=== PATIENT | male | born 1990 | race Caucasian/White ===

== ENCOUNTER 2022-02-04 14:41 | Emergency (ER) | payer OTHER, SELFPAY ==
[2022-02-04 14:56] VITALS: BP 134/74; PULSE 81; RESP 16; TEMP 36.9; O2SAT 97; BMI 21.9
--- NOTE | 2022-02-04 16:03 | ED.GENADULT ---
HPI - General Adult General Time Seen by Provider: 16:03 Date Seen: 02/04/22 Chief complaint: Extremity Pain/Injury, Upper Stated complaint: Elbow Lump Time Seen by Provider: 02/04/22 15:55 Source: patient and RN notes reviewed Mode of arrival: ambulatory Limitations: no limitations History of Present Illness HPI narrative: Patient is a 31-year-old male coming in with increasing left elbow pain. It has been bothering him for few days but last night started getting more painful that he could not sleep. He does not know of any injury, no trauma. He has not had any fevers or chills but notes increasing swelling and redness. It is hurting to mobilize his elbow. Tetanus is up-to-date per patient. No numbness or tingling in this extremity. It hurts on the posterior aspect of the elbow is getting more swollen. Related Data Home Medications Medication Instructions Recorded Confirmed No Known Home Medications 02/04/22 02/04/22 Allergies Allergy/AdvReac Type Severity Reaction Status Date / Time No Known Drug Allergies Allergy Verified 02/04/22 14:58 Review of Systems Status of ROS: Reports: 6 or more systems reviewed and unremarkable except as noted in History and below Exam Const: Vital Signs, click to edit/add: Vital Signs - 24 hr 02/04/22 14:56 Temperature 98.5 F Pulse Rate [Pulse Oximeter] 81 Respiratory Rate 16 Blood Pressure [Ri ght Upper Arm] 134/74 Pulse Oximetry 97 Oxygen Delivery Me thod Room Air Documenting provider has reviewed patient's vital signs: yes Common normals: no apparent distress, oriented x3, no limitations, healthy appearing and alert General appearance: cooperative, comfortable, well kempt and well developed HENMT: Common normals: normocephalic, head/scalp atraumatic and hearing grossly normal bilaterally Head and scalp: normocephalic and atraumatic Eye: Common normals: PERRL, EOMs intact bilaterally, conjunctivae normal and no scleral icterus Conjunctiva: conjunctiva(e) normal Pupil: PERRL Neck & C-Spine: Common normals: full ROM, no lymphadenopathy and supple Lymph: Other: I do not feel any left axillary lymphadenopathy Resp: Common normals: normal respiratory effort, no retractions, no use of accessory muscles and clear to auscultation bilaterally Auscultation: clear to auscultation bilaterally Cardio: Common normals: regular rate, regular rhythm, S1 normal heart sound, S2 normal heart sound, no gallops, no clicks and no murmurs Rate: regular rate Rhythm: regular rhythm Heart sounds: S1 normal and S2 normal Extremity: Other: On the posterior aspect of his left elbow there is erythema and swelling. It goes above the olecranon process and down onto the forearm. I do feel some fluid in the area of the bursa. He can fully flex and extend but states it is painful. This most definitely seems to be a cellulitis. Neuro: Common normals: oriented x3 Sensorium/orientation: alert Psych: Appearance: well kempt Course Course Hospital Course: Will obtain blood culture, baseline labs. We will start with plain imaging of the elbow. Reevaluation(s) Reevaluation #1: Reviewed with patient that his x-ray is looking reasonable. We did review that MRI would be the modality of choice. He states overall he feels fine is just there is pain in the elbow but still can fully flex and extend. Re-evaluation of his elbow reassures me that my clinical suspicion of cellulitis without septic bursitis is correct. His white count is mildly elevated. He has no history of MRSA. We are going to initiate IV Ancef while I wait for the rest of his labs to come back. He does not have a primary care provider, states he would probably just plan on following up here in our clinic. Time: 17:37 Reevaluation #2: Patient tolerated his IV Ancef. Did hanna the perimeter of his elbow. He still can fully flex and extend. Really do not have this sense that this is a septic bursitis. It is more of a global cellulitis over the elbow. He is afebrile, will treat outpatient at this point. Ultimately would recommend clinic follow-up tomorrow but realistically he and I have reviewed that I doubt that there is any chance that this will happen. They are just no office visit, no availability in clinics, hospitals, the medical situation is very difficult at this time. I did review with the patient that I am certainly back in the ER on Tuesday. He knows in the meantime though if this is progressing or worsening, increasing pain, does need to be re-evaluated. I do not think he needs increased imaging, hospitalization for IV antibiotics at this time. I do feel he is clinically appropriate for outpatient management. Note there still is a pending C-reactive protein as there was something amiss with the chemistry analyzer, still awaiting that but I doubt that will change my position or stance on outpatient management. We have discussed dispensing medicines from [facility], patient had significant difficulty sleeping last night due to pain. Will give a prescription for tramadol. Will give the smallest dose possible from [facility]. Time: 19:08 Vital Signs Vital signs: Initial Vital Signs Temperature 98.5 F 02/04/22 14:56 Temperature Source Temporal Artery Scan 02/04/22 14:56 Pulse Rate 81 02/04/22 14:56 Respiratory Rate 16 02/04/22 14:56 Blood Pressure 134/74 02/04/22 14:56 Blood Pressure Mean 94 02/04/22 14:56 Blood Pressure Position Sitting 02/04/22 14:56 Pulse Oximetry 97 02/04/22 14:56 Oxygen Delivery Method 02/04/22 14:56 Vital Signs Temperature 98.5 F 02/04/22 14:56 Pulse Rate 81 02/04/22 14:56 Respiratory Rate 16 02/04/22 14:56 Blood Pressure 134/74 02/04/22 14:56 Pulse Oximetry 97 02/04/22 14:56 Oxygen Delivery Method 02/04/22 14:56 Temperature 98.5 F 02/04/22 14:56 Pulse Rate 81 02/04/22 14:56 Respiratory Rate 16 02/04/22 14:56 Blood Pressure 134/74 02/04/22 14:56 Pulse Oximetry 97 02/04/22 14:56 Oxygen Delivery Method 02/04/22 14:56 Medical Decision Making Lab Data Lab results reviewed: Yes I reviewed the patient's lab results Labs: Lab Results 02/04/22 02/04/22 02/04/22 Range/Units 16:30 16:30 16:30 WBC 12.35 H (4.50-11.00) K/uL RBC 5.06 (4.30-5.90) m/uL Hgb 15.3 (13.5-17.5) gm/dL Hct 44.7 (37.0-53.0) % MCV 88 (80-100) fL MCH 30 (26-34) pg MCHC 34 (32-36) gm/dL RDW Coeff of Stepan 12.7 (11.5-15.5) % Plt Count 247 (140-440) K/uL Neut % (Auto) 81.5 H (42.0-72.0) % Lymph % (Auto) 9.1 L (20-44) % [place] % (Auto) 7.9 (0.0-11.0) % Eos % (Auto) 1.1 (0.0-7.0) % Baso % (Auto) 0.2 (0.0-3.0) % Neut # (Auto) 10.10 H (1.7-7.0) K/uL Lymph # (Auto) 1.10 (0.90-2.90) K/uL [place] # (Auto) 1.00 H (0.00-0.90) K/UL Eos # (Auto) 0.10 (0.00-0.50) K/uL Baso # (Auto) 0.00 (0.00-0.30) K/uL Abs Immat Gran (auto) 0.00 (0.00-0.30) K/uL Imm/Tot Granulo (auto) 0.2 % ESR 6 (2-15) mm/hr Sodium (135-149) mmol/L Potassium (3.6-5.1) mmol/L Chloride (96-114) mmol/L Carbon Dioxide (20-32) mmol/L BUN (5-24) mg/dL Creatinine (0.5-1.5) mg/dL Estimated Creat Clear Estimated GFR ml/min Glucose (60-115) mg/dL Calcium (8.4-10.6) mg/dL C-Reactive Protein 5.8 H (0.5-1.0) mg/dL 02/04/22 Range/Units 16:30 WBC (4.50-11.00) K/uL RBC (4.30-5.90) m/uL Hgb (13.5-17.5) gm/dL Hct (37.0-53.0) % MCV (80-100) fL MCH (26-34) pg MCHC (32-36) gm/dL RDW Coeff of Stepan (11.5-15.5) % Plt Count (140-440) K/uL Neut % (Auto) (42.0-72.0) % Lymph % (Auto) (20-44) % [place] % (Auto) (0.0-11.0) % Eos % (Auto) (0.0-7.0) % Baso % (Auto) (0.0-3.0) % Neut # (Auto) (1.7-7.0) K/uL Lymph # (Auto) (0.90-2.90) K/uL [place] # (Auto) (0.00-0.90) K/UL Eos # (Auto) (0.00-0.50) K/uL Baso # (Auto) (0.00-0.30) K/uL Abs Immat Gran (auto) (0.00-0.30) K/uL Imm/Tot Granulo (auto) % ESR (2-15) mm/hr Sodium 139 (135-149) mmol/L Potassium 3.9 (3.6-5.1) mmol/L Chloride 102 (96-114) mmol/L Carbon Dioxide 30 (20-32) mmol/L BUN 13 (5-24) mg/dL Creatinine 0.7 (0.5-1.5) mg/dL Estimated Creat Clear 179.82 Estimated GFR 128 ml/min Glucose 81 (60-115) mg/dL Calcium 9.4 (8.4-10.6) mg/dL C-Reactive Protein (0.5-1.0) mg/dL Imaging Data X-ray left elbow: Attestation: I have reviewed the pertinent imaging results. My impression: I see no identifiable fluid collection on the soft tissue. No acute pathology on my preliminary read. Radiologist's impression: Patient: HEMANT GERONIMO Facility:?[facility] Patient ID:?[id number] Site Patient ID:?[id number]. Site :?[id number] Study:?XRay Extremity Left ELBOW 3V-02/04/2022 4:26:11 PM Ordering Physician:Radhames Mandujano Final Report: Indication: Swelling. ? septic bursitis. Technique: Left elbow 3 views Comparison: None. Findings: Bones: Alignment is normal. No fractures or bone lesions. Joint spaces: Unremarkable. No sign of joint effusion. Soft tissues: Posterior soft tissue swelling. Impression: Soft tissue swelling, without underlying osseous abnormality. If there is clinical concern for septic bursitis, recommend MRI of the elbow without and with contrast. Dictated by Shawn Vasques MD @ 02/04/2022 5:05:36 PM (Electronic Signature) Critical Care Time Critical Care Time Critical Care Time: No Discharge Plan Discharge Clinical Impression: Cellulitis of arm, left Condition: Stable Instructions: Cellulitis (ED) Additional Instructions: Start Keflex tomorrow morning and take as prescribed (500mg 4x/day for 10 days). Have given you a prescription of Tramadol, can use at night to aid in sleep. Baseline can still use Tylenol and/or ibuprofen as needed for discomfort. Tramadol is considered narcotic in you should not drive or operate machinery on this. If this arm has rapidly expanding redness, increasing swelling, increasing pain with range of motion despite being on antibiotics, develops fever or think you are worsening, do need to be re-evaluated. Ultimately, would recommend clinic follow-up within 1-3 days but realistically I am not sure that you will find a clinic appointment within this time frame. Activity Level: Activity as Tolerated Discharge Diet: Regular Prescriptions: No Action No Known Home Medications Stand Alone Forms: [employer] Info Instructions
--- NOTE | 2022-02-04 16:15 | CRLHL7_ITS ---
For Patients: As a result of the Cures Act, medical imaging exams and procedure reports are released immediately into your electronic medical record. You may view this report before your referring provider. If you have questions, please contact your health care provider. Indication: Swelling. ? septic bursitis. Technique: Left elbow 3 views Comparison: None. Findings: Bones: Alignment is normal. No fractures or bone lesions. Joint spaces: Unremarkable. No sign of joint effusion. Soft tissues: Posterior soft tissue swelling. Impression: Soft tissue swelling, without underlying osseous abnormality. If there is clinical concern for septic bursitis, recommend MRI of the elbow without and with contrast. Dictated by Shawn Vasques MD @ 02/04/2022 5:05:36 PM (Electronically Signed)
[2022-02-04 16:58] LABS: Basophils Percent Auto 0.2 % (0.0-3.0); Eosinophils Percent Auto 1.1 % (0.0-7.0); Hematocrit 44.7 % (37.0-53.0); Hemoglobin* 15.3 gm/dL (13.5-17.5); Immature Granulocytes Pct Auto 0.2 %; Lymphocytes Percent Auto 9.1 % (20-44); Mean Corpuscular HGB Conc 34 gm/dL (32-36); Mean Corpuscular Hemoglobin 30 pg (26-34); Mean Corpuscular Volume 88 fL (80-100); Monocytes Percent Auto 7.9 % (0.0-11.0); Neutrophils Percent Auto 81.5 % (42.0-72.0); Platelet Count* 247 K/uL (140-440); RDW Coefficient of Variation % 12.7 % (11.5-15.5); Red Blood Count 5.06 m/uL (4.30-5.90); White Blood Count* 12.35 K/uL (4.50-11.00)
[2022-02-04 17:18] LABS: Chloride* 102 mmol/L (96-114); Potassium* 3.9 mmol/L (3.6-5.1); Sodium* 139 mmol/L (135-149)
[2022-02-04 17:21] LABS: Creatinine* 0.7 mg/dL (0.5-1.5); Est. Creatinine Clearance* 179.82; Estimated Glomerular Filt Rate 128 ml/min
[2022-02-04 17:22] LABS: Blood Urea Nitrogen* 13 mg/dL (5-24); Carbon Dioxide* 30 mmol/L (20-32); Glucose* 81 mg/dL (60-115)
[2022-02-04 17:31] LABS: Slide Review Reflex No
[2022-02-04 17:47] LABS: Erythrocyte SedimentationRate* 6 mm/hr (2-15)
[2022-02-04] MEDS: CEFAZOLIN 2 GM in 0.9 % SODIUM CHLORIDE Mini-bag 100 ML IVPB (17:52)
[2022-02-04 18:24] LABS: Calcium* 9.4 mg/dL (8.4-10.6)
[2022-02-04 19:06] LABS: C Reactive Protein* 5.8 mg/dL (0.5-1.0)
== END 2022-02-04 19:36 | disposition home or self-care (01) ==
PROVIDERS: Emergency Provider Family Medicine
DX: L03.114 Cellulitis of left upper limb (principal)
CPT/HCPCS: 36415; 73080; 80048; 85025; 85651; 86140; 87040; 96365; 99284; J0690

== ENCOUNTER 2022-02-08 13:55 | Emergency (ER) | payer OTHER, SELFPAY ==
[2022-02-08 14:57] VITALS: BP 117/61; PULSE 62; RESP 18; TEMP 37.5; O2SAT 97; BMI 21.9
[2022-02-08 17:07] VITALS: BP 125/71; PULSE 84; RESP 16; TEMP 36.9; O2SAT 99
--- NOTE | 2022-02-08 17:08 | ED.NURSE ---
Patient rechecked from waiting room.
--- NOTE | 2022-02-08 18:13 | ED.SKABFB ---
HPI - Skin/Abscess/Foreign Bdy General Chief complaint: Skin/Abscess/Foreign Body Stated complaint: Infection on Elbow worsening Time Seen by Provider: 02/08/22 17:59 History of Present Illness HPI narrative: This 31-year-old male has a left olecranon bursitis. He was evaluated and treated a couple days ago in the emergency department. He did receive a g of Ancef intravenously and a prescription for Keflex. He returns today stating that the swelling and the redness intensity has decreased but wonders about the spreading of a rather faint red discoloration from the left elbow both proximally and distally. He does not report any fevers. He has normal range of motion of his left elbow without any discomfort. Related Data Home Medications Medication Instructions Recorded Confirmed cephalexin 500 mg capsule mg 02/08/22 Previous Rx's Medication Instructions Recorded azithromycin 250 mg tablet 250 mg PO DAILY 6 days #6 tabs 02/08/22 (Zithromax Z-Ezequiel) Allergies Allergy/AdvReac Type Severity Reaction Status Date / Time No Known Drug Allergies Allergy Verified 02/04/22 14:58 Review of Systems Status of ROS: Reports: 10 or more systems reviewed and unremarkable except as noted in History and below Narrative: Constitutional: No fevers, no weight gain or loss. Eyes: No discharge. No vision changes. HENT: No congestion, no sore throat, no ear pain. Cardiovascular: No chest pain, no palpitations. Respiratory: No shortness of breath, no wheezes, no cough. Gastrointestinal: No abdominal pain, no vomiting, no diarrhea. Genitourinary: No dysuria, no hematuria. Musculoskeletal: Normal range of motion. Erythema in the left elbow with mild swelling of the olecranon bursa. Skin: No rashes, no pruritis. Neurological: No dizziness, weakness, sensory change, speech change. Endo/Heme/Allergies: No bruising or bleeding. No polydipsia. Pysch: no suicidality, no anxiety, no insomnia. All other systems reviewed and are negative. [facility] Social History Smoking Status: Never smoker Do you use any of these nicotine containing products: None Second hand tobacco smoke exposure: No How often do you have a drink containing alcohol: never How often do you have six or more drinks on one occasion: Never AUDIT-C Alcohol total score: 0 Non-prescribed substance use: denies use service: No Exam Narrative: Exam Narrative: Constitutional: Well-developed, well-nourished, no acute distress. HEENT: Normocephalic, atraumatic. Neck: Normal range of motion. Nontender. Supple. Heart: Intact distal pulses. Lungs: No chest discomfort. No wheezes, rhonchi, or rales. Abdomen: Nontender. Back: Normal range of motion. Extremities: Normal range of motion. No injury. Erythema with mild swelling of the left olecranon bursa typical of bursitis. He has some erythema spreading proximally and distally from this area but this is rather faint and by the patient's report is markedly improved from a couple days ago. Skin: Intact. No rash. Warm. No erythema or pallor. Neurologic: No altered sensation. No weakness. Alert and oriented. Psychiatric: No suicidality. No anxiety or depression. No insomnia. Nursing notes and vitals signs are reviewed. Const: Vital Signs, click to edit/add: Vital Signs - 24 hr 02/08/22 14:57 02/08/22 17:07 Temperature 99.5 F 98.5 F Pulse Rate [Pulse Oximeter] 62 84 Respiratory Rate 18 16 Blood Pressure [Ri ght Upper Arm] 117/61 125/71 Pulse Oximetry 97 99 Oxygen Delivery Me thod Room Air Room Air Course Vital Signs Vital signs: Initial Vital Signs Temperature 99.5 F 02/08/22 14:57 Temperature Source Temporal Artery Scan 02/08/22 14:57 Pulse Rate 62 02/08/22 14:57 Respiratory Rate 18 02/08/22 14:57 Blood Pressure 117/61 02/08/22 14:57 Blood Pressure Mean 79 02/08/22 14:57 Pulse Oximetry 97 02/08/22 14:57 Oxygen Delivery Method 02/08/22 14:57 Vital Signs Temperature 99.5 F 02/08/22 14:57 Pulse Rate 62 02/08/22 14:57 Respiratory Rate 18 02/08/22 14:57 Blood Pressure 117/61 02/08/22 14:57 Pulse Oximetry 97 02/08/22 14:57 Oxygen Delivery Method 02/08/22 14:57 Temperature 98.5 F 02/08/22 17:07 Pulse Rate 84 02/08/22 17:07 Respiratory Rate 16 02/08/22 17:07 Blood Pressure 125/71 02/08/22 17:07 Pulse Oximetry 99 02/08/22 17:07 Oxygen Delivery Method 02/08/22 17:07 MDM - Skin/Abscess/Foreign Bdy MDM Narrative Medical decision making narrative: This patient comes in with typical symptoms of olecranon bursitis and cellulitis. He does not have any joint involvement. He does not report any pain and has full range of motion of his left elbow. He states that his symptoms really have improved but wondered about a very faint spread of erythema both proximally and distally from the border of the ink that was drawn around the cellulitis a couple days ago. He is continuing to take Keflex. He does not have any fevers. There is no red streak or sign of intra-articular infection. The patient did receive cephalosporins in both IV and oral dose things. I decided to augment this with a prescription for Zithromax given the increased faint erythema extending proximally and distally. I describe signs and symptoms to the patient that would indicate a need for return and re-evaluation. Discharge Plan Discharge Clinical Impression: Olecranon bursitis of left elbow, Cellulitis of arm, left Patient Disposition: Home, Self-Care Condition: Stable Additional Instructions: Take medication as prescribed. Follow up with MD or return if worsening. Prescriptions: New azithromycin [Zithromax Z-Ezequiel] 250 mg tablet 250 mg PO DAILY 6 Days Qty: 6 0RF Rx Instructions: start on day 2 of therapy No Action cephalexin 500 mg capsule Follow Up/Referrals: Provider,Not a Local [Primary Care Provider] - Stand Alone Forms: [employer] Info Instructions
== END 2022-02-08 18:25 | disposition home or self-care (01) ==
PROVIDERS: Emergency Provider Emergency Medicine Emergency Medical Services
DX: M70.22 Olecranon bursitis, left elbow (principal); L03.114 Cellulitis of left upper limb
CPT/HCPCS: 99283; 99284